=== PATIENT | male | born 1970 | race Caucasian/White ===

== ENCOUNTER 2018-05-16 23:38 | Emergency (ER) | payer OTHER, SELFPAY ==
[2018-05-16 23:39] VITALS: BP 129/74; PULSE 74; RESP 18; TEMP 37; O2SAT 97
--- NOTE | 2018-05-17 00:03 | DI.CT_ITS ---
SYMPTOMS/DIAGNOSIS: LEFT POSTERIOR PAIN, INTRASCAPULAR CT SCAN OF THE CHEST: CT scan of the chest was performed following the uneventful administration of intravenous contrast material. No priors for comparison. The thoracic aorta is of normal caliber. Heart size is within normal limits. No significant pericardial effusion is seen. No significant mediastinal or hilar adenopathy is present. No pleural effusion or pneumothorax is identified. No infiltrates are seen in the lungs. The tracheobronchial tree is unremarkable. Upper abdominal images show a large amount of stool within the colon. Degenerative changes are seen in the spine. IMPRESSION: 1. No evidence of an acute pulmonary process. 2. Large amount of retained stool.
--- NOTE | 2018-05-17 00:04 | W.ED.GENAD ---
Discharge Plan Disposition Patient Disposition: HOME Condition: Improving Discharge Details Chief Complaint: Nk/Back Pain Clinical Impression: Acute torticollis Reason For Visit: DAYANNA Primary Care Provider: Alexandro Alfredo ED Provider: Elpidio Newman Home Meds and New Rx's Prescriptions: Continue diphenhydramine HCl [Benadryl] 25 mg Capsule 50 mg PO DAILY RF: 0 buprenorphine-naloxone 2-0.5 mg Film 6 mg Sublingual DAILY RF: 0 Discharge Instructions Instructions: Spasmodic Torticollis (ED) Additional Instructions: Heat and/or ice to improve discomfort Return if you develop a rash, fever, shortness of breath, or any other acute concerns. Your testing today included laboratory testing and a CT scan of the chest Medical Decision Making 47-year-old male presents from [facility] with left posterior neck and shoulder pain that developed over the course of the day. He has normal vital signs and exam reveals tenderness and spasm of the left paraspinous cervical musculature. Patient has a broad differential diagnosis including underlying thoracic pathology or acute coronary syndrome. He is given parenteral analgesic, muscle relaxant, referred for EKG, laboratory testing, CT scan of the chest. His diagnostic findings are unremarkable including laboratories with troponin as well as CT scan of his chest. He is improved with the medications. Stable for discharge to home. Consistent with torticollis Lab Data Lab results reviewed: Yes I reviewed the patient's lab results. Laboratory Results - last 24 hr 05/17/18 05/17/18 05/17/18 00:20 00:20 00:20 WBC 10.33 RBC 5.21 Hgb 14.8 Hct 44.7 MCV 85.8 MCH 28.4 MCHC 33.1 RDW 14.0 Plt Count 292 MPV 10.0 Immature Gran % 0.1 Neutrophils % 48.8 Lymphocytes % 34.5 Monocytes % 8.6 Eosinophils % 7.1 Basophils % 0.9 Absolute Neutrophils 5.05 Absolute Lymphocytes 3.56 H Absolute Monocytes 0.89 H Absolute Eosinophils 0.73 H Absolute Basophils 0.09 Sodium 142 Potassium 4.0 Chloride 103 Carbon Dioxide 30.5 Anion Gap 8.5 BUN 11 Creatinine 0.76 Estimated GFR/1.73 m2 >= 60.00 Glucose 87 Calcium 8.8 Total Bilirubin 0.2 AST 27 ALT 35 Alkaline Phosphatase 73 Troponin I < 0.02 C-Reactive Protein 0.06 Total Protein 7.7 Albumin 4.3 HPI General Mode of arrival: EMS. Date/Time Provider Initiated Documentation: 05/16/18 23:58. Limitations to Documentation: no limitations. Information obtained by: EMS. History of Present Illness 47 year old M presents to the emergency department with the chief complaint of Left posterior pain at level of shoulder, described as severe, Quality is described as stabbing, and is localized to the chest. Patient neck. Patient started experiencing this hour(s) and it has been constant. No relieving factors improve symptom(s), Movement worsens symptoms . Patient notes no other symptoms.. Patient did receive the following treatments prior to arrival, none HPI Narrative: 47-year-old male presents from long-term stating that he developed the gradual onset of left shoulder and neck pain over the course of the day without inciting event that he can recall. It is worse with movement of the neck. It is constant, nonradiating. He denies chest pain or shortness of breath. Related Data Home Medications Medication Instructions Recorded Confirmed buprenorphine-naloxone 6 mg SUBLINGUAL DAILY 05/16/18 05/16/18 diphenhydramine HCl [Benadryl] 50 mg PO DAILY 05/16/18 05/16/18 Allergies Allergy/AdvReac Type Severity Reaction Status Date / Time onion Allergy Unverified 05/16/18 23:47 Penicillins Allergy Anaphylaxsi Unverified 05/16/18 23:47 s General Stated Complaint: Nk/Back Pain FAZAL: 3 Review of Systems Review of Systems 6 systems reviewed and otherwise negative. PFSH Social History Smoking/Tobacco Use Status: Current every day Exam Narrative Exam Narrative: GEN: awake, alert, oriented 3. Pleasant, well groomed, interactive. HEAD: Normocephalic, atraumatic ENT: Mucous membranes moist, oropharynx unremarkable, External ear exam unremarkable EYES: PERRL, EOMI NECK: Full ROM, left paraspinous muscular spasm present through trapezius muscle bed, no menigismus CHEST/RESP: Nontender, clear to auscultation bilateral, no wheeze/rhonchi/rales CARDIOVASCULAR: RRR, no murmur, rub jalyn. 2+ Rad pulse bilateral ABDOMEN: Soft, nontender, no mass. +Bowel sounds EXT: Full ROM, no edema, no rash Neuro: Grossly normal neurologic exam, conversant, interactive. Psych: Speech fluent, thoughts congruent, affect mildly anxious Course Vital Signs Temperature 37 C 05/16/18 23:39 Pulse 74 05/16/18 23:39 Respiratory Rate 18 05/16/18 23:39 Blood Pressure 129/74 05/16/18 23:39 Pulse Oximetry 97 05/16/18 23:39 Temperature 37 C 05/16/18 23:39 Temperature Source Temporal Artery Scan 05/16/18 23:39 Pulse 74 05/16/18 23:39 Respiratory Rate 18 05/16/18 23:39 Respiratory Effort Non-Labored 05/16/18 23:39 Blood Pressure 129/74 05/16/18 23:39 Pulse Oximetry 97 05/16/18 23:39 Oxygen Delivery Method Room Air 05/16/18 23:39 Oxygen Flow Rate 0 05/16/18 23:39 Pain Level 10 05/16/18 23:49
--- NOTE | 2018-05-17 00:09 | ED.GENADUL_ITS ---
Discharge Plan Disposition Patient Disposition: HOME Condition: Improving Discharge Details Chief Complaint: Nk/Back Pain Clinical Impression: Acute torticollis Reason For Visit: DAYANNA Primary Care Provider: Alexandro Alfredo ED Provider: Elpidio Newman Home Meds and New Rx's Prescriptions: Continue diphenhydramine HCl [Benadryl] 25 mg Capsule 50 mg PO DAILY RF: 0 buprenorphine-naloxone 2-0.5 mg Film 6 mg Sublingual DAILY RF: 0 Discharge Instructions Instructions: Spasmodic Torticollis (ED) Additional Instructions: Heat and/or ice to improve discomfort Return if you develop a rash, fever, shortness of breath, or any other acute concerns. Your testing today included laboratory testing and a CT scan of the chest Medical Decision Making 47-year-old male presents from shelter with left posterior neck and shoulder pain that developed over the course of the day. He has normal vital signs and exam reveals tenderness and spasm of the left paraspinous cervical musculature. Patient has a broad differential diagnosis including underlying thoracic pathology or acute coronary syndrome. He is given parenteral analgesic, muscle relaxant, referred for EKG, laboratory testing, CT scan of the chest. His diagnostic findings are unremarkable including laboratories with troponin as well as CT scan of his chest. He is improved with the medications. Stable for discharge to home. Consistent with torticollis Lab Data Lab results reviewed: Yes I reviewed the patient's lab results. Laboratory Results - last 24 hr 05/17/18 05/17/18 05/17/18 00:20 00:20 00:20 WBC 10.33 RBC 5.21 Hgb 14.8 Hct 44.7 MCV 85.8 MCH 28.4 MCHC 33.1 RDW 14.0 Plt Count 292 MPV 10.0 Immature Gran % 0.1 Neutrophils % 48.8 Lymphocytes % 34.5 Monocytes % 8.6 Eosinophils % 7.1 Basophils % 0.9 Absolute Neutrophils 5.05 Absolute Lymphocytes 3.56 H Absolute Monocytes 0.89 H Absolute Eosinophils 0.73 H Absolute Basophils 0.09 Sodium 142 Potassium 4.0 Chloride 103 Carbon Dioxide 30.5 Anion Gap 8.5 BUN 11 Creatinine 0.76 Estimated GFR/1.73 m2 >= 60.00 Glucose 87 Calcium 8.8 Total Bilirubin 0.2 AST 27 ALT 35 Alkaline Phosphatase 73 Troponin I < 0.02 C-Reactive Protein 0.06 Total Protein 7.7 Albumin 4.3 HPI General Mode of arrival: EMS . Date/Time Provider Initiated Documentation: 05/16/18 23:58 . Limitations to Documentation: no limitations . Information obtained by: EMS . History of Present Illness 47 year old M presents to the emergency department with the chief complaint of Left posterior pain at level of shoulder, described as severe, Quality is described as stabbing, and is localized to the chest. Patient neck. Patient started experiencing this hour(s) and it has been constant. No relieving factors improve symptom(s), Movement worsens symptoms . Patient notes no other symptoms.. Patient did receive the following treatments prior to arrival, none HPI Narrative: 47-year-old male presents from shelter stating that he developed the gradual onset of left shoulder and neck pain over the course of the day without inciting event that he can recall. It is worse with movement of the neck. It is constant, nonradiating. He denies chest pain or shortness of breath. Related Data Home Medications Medication Instructions Recorded Confirmed buprenorphine-naloxone 6 mg SUBLINGUAL DAILY 05/16/18 05/16/18 diphenhydramine HCl [Benadryl] 50 mg PO DAILY 05/16/18 05/16/18 Allergies Allergy/AdvReac Type Severity Reaction Status Date / Time onion Allergy Unverified 05/16/18 23:47 Penicillins Allergy Anaphylaxsi Unverified 05/16/18 23:47 s General Stated Complaint: Nk/Back Pain FAZAL: 3 Review of Systems Review of Systems 6 systems reviewed and otherwise negative. PFSH Social History Smoking/Tobacco Use Status: Current every day Exam Narrative Exam Narrative: GEN: awake, alert, oriented 3. Pleasant, well groomed, interactive. HEAD: Normocephalic, atraumatic ENT: Mucous membranes moist, oropharynx unremarkable, External ear exam unremarkable EYES: PERRL, EOMI NECK: Full ROM, left paraspinous muscular spasm present through trapezius muscle bed, no menigismus CHEST/RESP: Nontender, clear to auscultation bilateral, no wheeze/rhonchi/rales CARDIOVASCULAR: RRR, no murmur, rub jalyn. 2+ Rad pulse bilateral ABDOMEN: Soft, nontender, no mass. +Bowel sounds EXT: Full ROM, no edema, no rash Neuro: Grossly normal neurologic exam, conversant, interactive. Psych: Speech fluent, thoughts congruent, affect mildly anxious Course Vital Signs Temperature 37 C 05/16/18 23:39 Pulse 74 05/16/18 23:39 Respiratory Rate 18 05/16/18 23:39 Blood Pressure 129/74 05/16/18 23:39 Pulse Oximetry 97 05/16/18 23:39 Temperature 37 C 05/16/18 23:39 Temperature Source Temporal Artery Scan 05/16/18 23:39 Pulse 74 05/16/18 23:39 Respiratory Rate 18 05/16/18 23:39 Respiratory Effort Non-Labored 05/16/18 23:39 Blood Pressure 129/74 05/16/18 23:39 Pulse Oximetry 97 05/16/18 23:39 Oxygen Delivery Method Room Air 05/16/18 23:39 Oxygen Flow Rate 0 05/16/18 23:39 Pain Level 10 05/16/18 23:49
[2018-05-17 00:26] LABS: Abs Immature Grans 0.01 k/cumm (0.0-0.09); Absolute Basophil Count 0.09 k/cumm (0.0-0.2); Absolute Eosinophil Count 0.73 k/cumm (0.0-0.7); Absolute Lymphocyte Count 3.56 k/cumm (1.2-3.4); Absolute Monocyte Count 0.89 k/cumm (0.11-0.7); Absolute Neutrophil Count 5.05 k/cumm (1.2-6.7); Basophils % 0.9; Eosinophils % 7.1; HCT 44.7 % (40.0-50.0); HGB 14.8 g/dL (13.5-17.5); Immature Grans % 0.1; Lymphocytes % 34.5; Mean Corp. HGB Concentration 33.1 g/dL (32.0-36.0); Mean Corpuscular Hemoglobin 28.4 pg (27.0-33.0); Mean Corpuscular Volume 85.8 fL (80-95); Monocytes % 8.6; Neutrophils % 48.8; Platelet Count 292 x1000/uL (130-400); RBC 5.21 m/cumm (4.50-6.00); White Blood Cell Count 10.33 k/cumm (4.4-10.8)
[2018-05-17] MEDS: Lactated Ringers 1,000 ML 1000 ML IV (00:29)
[2018-05-17] MEDS: Ketorolac 30 MG/ML VIAL IVP (00:29)
[2018-05-17 00:39] LABS: ALT 35 U/L (12-78); AST 27 U/L (15-37); Albumin 4.3 g/dL (3.4-5.0); Alkaline Phosphatase 73 U/L (46-116); Anion Gap 8.5 mmol/L (3-11); BUN 11 mg/dL (7-18); Bilirubin, Total 0.2 mg/dL (0.2-1.0); C-Reactive Protein 0.06 mg/dL (0.0-0.3); CO2 30.5 mmol/L (21.0-32.0); CREATININE 0.76 mg/dL (0.70-1.30); Calcium 8.8 mg/dL (8.5-10.1); Chloride 103 mmol/L (98-107); Glucose 87 mg/dL (70-100); Sodium 142 mmol/L (136-145); Total Protein 7.7 g/dL (6.4-8.2)
[2018-05-17 00:44] LABS: Troponin I < 0.02 ng/mL (0.00-0.06)
[2018-05-17] MEDS: Omnipaque 350 MG/ML 100 ML BTL IV (00:51)
--- NOTE | 2018-05-17 01:37 | DI.VRAD_ITS ---
EXAM: CT Chest With Intravenous Contrast CLINICAL HISTORY: 47 years old, male; Signs and symptoms; Other: L posterior pain, intrascapula TECHNIQUE: Axial computed tomography images of the chest with intravenous contrast. All CT scans at this facility use at least one of these dose optimization techniques: automated exposure control; mA and/or kV adjustment per patient size (includes targeted exams where dose is matched to clinical indication); or iterative reconstruction. Coronal and sagittal reformatted images were created and reviewed. CONTRAST: 70 mL of omnipaque 350 administered intravenously. COMPARISON: No relevant prior studies available. FINDINGS: Lungs: Unremarkable. No mass. No consolidation. Pleural space: Unremarkable. No pneumothorax. No significant effusion. Heart: Unremarkable. No cardiomegaly. No significant pericardial effusion. Bones/joints: Degenerative change of the spine. No acute fracture. No dislocation. Soft tissues: Unremarkable. Vasculature: Unremarkable. No thoracic aortic aneurysm. Lymph nodes: Unremarkable. No enlarged lymph nodes. Other findings: Fecal retention. IMPRESSION: Fecal retention. Dictated and Authenticated by: Bonilla Salgado MD. Ordering:ZACHARY ANDERSON MD
[2018-05-17 02:26] VITALS: BP 129/74; PULSE 74; RESP 18; TEMP 37; O2SAT 97
== END 2018-05-17 02:12 | disposition home or self-care (01) ==
LOC: ER 05-17 02:21
PROVIDERS: Emergency Provider Emergency Medicine; PCP Preventive Medicine Public Health & General Preventive Medicine
DX: M43.6 Torticollis (principal)
CPT/HCPCS: 80053; 96374; 96375; 99283; 71260; 84484; 85025; 86140; 99284; J1885; J3490

== ENCOUNTER 2018-06-29 01:01 | Outpatient (CLI) | payer OTHER, SELFPAY ==
--- NOTE | 2018-06-29 11:04 | DI.MRI_ITS ---
SYMPTOMS/DIAGNOSIS: SIGNIFICANT NECK PAIN, SUDDEN ONSET, RADIATING TO LEFT UPPER CHEST/SHOULDER/ARM MRI OF THE CERVICAL SPINE: The exam is limited by significant patient motion. T1, T2 and STIR sagittal, T2 3D sagittal and gradient-echo axial sequences were performed. There is a large left-sided disc herniation with extension into the left neural foramen at the C6-7 level. The size of the herniated disc measures 10 mm transverse x 6 mm AP x 10 mm cephalocaudad. The C2-3 level is unremarkable. There is slight disc bulging at C3-4 and C4-5. Mild broad-based disc bulging is seen and small osteophytes are seen at C5-6. There is right neural foraminal narrowing. Cord signal and marrow signal appear normal. IMPRESSION: Large left lateral and foraminal disc herniation at C6-7.
== END 2018-06-29 01:21 ==
PROVIDERS: PCP Preventive Medicine Public Health & General Preventive Medicine; Visit Provider Emergency Medicine
DX: M54.2 Cervicalgia (principal); M54.12 Radiculopathy, cervical region; M50.123 Cervical disc disorder at C6-C7 level with radiculopathy
CPT/HCPCS: 72141